=== PATIENT | male | born 1960 | race Two or more races ===

== ENCOUNTER 2021-03-19 19:03 | Emergency (ER) | payer MEDICAID, OTHER ==
[~2021-03-19] VITALS: Ht 180.3 cm; Wt 94.8 kg
--- NOTE | 2021-03-19 19:15 | NUR ---
PATIENT BIBRA 839 FOR BOARD AND CARE WITH NOTED HEMATURIA FOR THE PAST HOUR. PATIENT NOTED TO BE ON ENOXAPARIN. PATIENT A/O X 1, OPENS EYES, PATIENT RR EVEN AND UNLABORED, NO SOB NOTED. PATIENT CONNECTED TO MONITOR.
--- NOTE | 2021-03-19 19:25 | NUR ---
REMOVED OLD FC NOTED WITH RED BLOOD IN URINE. PLACED NEW FC fR 18G NO RESISTANTS, NO URINE OUTPUT. BLADDER SCAN NOTED WITH 50CC. CLAUDETTE RAMIREZ MADE AWARE.
[2021-03-19 19:34] LABS: BASOPHILS % (AUTO) 0.8 % (0.0-2.0); EOSINOPHILS % (AUTO) 12.9 % (0.0-6.0); HEMATOCRIT 42 % (39-51); HEMOGLOBIN 14.2 g/dL (13.5-17.5); LYMPHOCYTES # (AUTO) 1.3 K/uL (0.8-4.8); LYMPHOCYTES % (AUTO) 22.4 % (20.0-44.0); MEAN CORPUSCULAR HGB CONC 34 g/dl (31.0-36.0); MEAN CORPUSCULAR VOLUME 88 fL (80-96); MONOCYTES # (AUTO) 0.5 K/uL (0.1-1.30); NEUTROPHILS # (AUTO) 3.2 K/uL (1.8-8.9); NEUTROPHILS % (AUTO) 54.9 % (43.0-81.0); PLATELET COUNT (AUTO) 205 K/uL (150-450); RED BLOOD CELL COUNT(AUTO) 4.82 MIL/uL (4.5-6.0); WHITE BLOOD COUNT (AUTO) 5.9 K/uL (4.3-11.0)
[2021-03-19 19:47] LABS: CALCIUM, SERUM 8.8 mg/dL (8.5-10.1); CREATININE 0.9 mg/dL (0.6-1.3); POTASSIUM 4.3 mmol/L (3.5-5.1)
[2021-03-19] MEDS ORDERED: IV NS 0.9% 1,000 ML IV ONE (20:00)
--- NOTE | 2021-03-19 21:00 | NUR ---
URINE COLLECTED AND SENT TO LAB
[2021-03-19 21:11] LABS: BILIRUBIN,URINE LARGE (NEGATIVE); COLOR,URINE RED (YELLOW); LEUKOCYTE ESTERASE ,URINE Large (NEGATIVE); NITRITE, URINE Positive (NEGATIVE); PROTEIN,URINE >=300 mg/dl (NEGATIVE); UGLUCOSE Negative (NEGATIVE)
[2021-03-19 21:40] LABS: RBC,URINE TOO NUMEROUS TO COUN /HPF (0-2); WBC,URINE NONE SEEN /HPF (0-3)
[2021-03-19 21:41] LABS: BACTERIA,URINE None seen /HPF (None Seen); SQUAMOUS EPITHELIAL CELL,UR None Seen /HPF (None Seen)
[2021-03-19] MEDS ORDERED: CEFTRIAXONE 1GM BAG (ER ONLY) 50 ML IV ONE (21:57)
[2021-03-19] MEDS ORDERED: CEPH500C2 PO (21:59)
[2021-03-19] MEDS ORDERED: CEFTRIAXONE 1 G in IV D5W 50 ML IV ONE (22:00)
--- NOTE | 2021-03-19 22:17 | NUR ---
REPORT GIVEN TO [facility] ON PT UPDATE.
--- NOTE | 2021-03-19 22:19 | NUR ---
[facility] ETA [id number]
--- NOTE | 2021-03-19 23:45 | NUR ---
REPORT GIVEN TO EMS AT BEDSIDE. PATIENT BEING TRANSFERRED BACK TO FACILITY. PATIENT VSS, IN NO ACUTE DISTRESS.
[2021-03-19 23:58] VITALS: BP 122/73
[2021-03-20] MEDS ORDERED: TRAZ-182 PO (07:38)
[2021-03-20] MEDS ORDERED: ENOX40DI9 SQ (07:38)
[2021-03-20] MEDS ORDERED: QUET25TA PO (07:38)
[2021-03-20] MEDS ORDERED: ATOR40TA PO (07:38)
[2021-03-20] MEDS ORDERED: THIA100T70 PO (07:38)
[2021-03-20] MEDS ORDERED: VALP250S4 PO ×2 (07:38)
[2021-03-20] MEDS ORDERED: MELA3TAB41 PO (07:38)
[2021-03-20] MEDS ORDERED: BACL10TA PO (07:38)
[2021-03-20] MEDS ORDERED: ASPI-1169 PO (07:38)
[2021-03-20] MEDS ORDERED: LOSA25TA27 PO (07:38)
[2021-03-20] MEDS ORDERED: NICO-676 TD (07:38)
[2021-03-20] MEDS ORDERED: SENN-261 PO (07:38)
[2021-03-20] MEDS ORDERED: TAMS-12 PO (07:38)
[2021-03-20] MEDS ORDERED: ACET-868 PO (07:38)
[2021-03-20] MEDS ORDERED: HYDR-4077 PO (07:38)
[2021-03-20] MEDS ORDERED: MULT400T5 PO (07:38)
[2021-03-20] MEDS ORDERED: POLY17PO4 PO (07:38)
[2021-03-20] MEDS ORDERED: PROP10TA68 PO (07:38)
[2021-03-20] MEDS ORDERED: AMLO-212 PO (07:38)
== END 2021-03-19 23:59 ==
LOC: ER 19:06
DX: N39.0 Urinary tract infection, site not specified (principal); E86.0 Dehydration; T83.83XA Hemorrhage due to genitourinary prosthetic devices, implants and grafts, initial encounter; G93.40 Encephalopathy, unspecified; I10 Essential (primary) hypertension; E78.5 Hyperlipidemia, unspecified; Z79.899 Other long term (current) drug therapy; Z79.82 Long term (current) use of aspirin
CPT/HCPCS: 36415; 51702; 80048; 81001; 82962; 85025; 87077; 87086; 87186; 96361; 96365; 99284; J0696 ×2; J7060

== ENCOUNTER 2021-03-20 01:10 | Inpatient (IN) | payer MEDICAID ==
[~2021-03-20] VITALS: Ht 180.3 cm; Wt 92.1 kg
[~2021-03-20 01:10] MED LIST: CEPH500C2 PO
--- NOTE | 2021-03-20 01:45 | NUR ---
PATIENT BIBRA 39 FROM [facility]ARD AND CARE WITH C/O BLEEDING AROUND THE F/C. PATIENT IS A/O TO STIMULUS OPENS EYES AND TO PAIN. PATIENT RR EVEN AND UNLABORED, NO SOB NTOED. PATIENT CONNECTED TO CARDIAC AND POX. PATIENT F/C NOTED WITH 100CC CHRIS URINE. MODERATE BLOOD NOTED AROUND F/C.
--- NOTE | 2021-03-20 02:45 | NUR ---
PATIENT NOTED WITH BLEEDING FROM F/C. OLD F/C REMOVED. PLACED NEW Fr 22, 3 WAY, IRRIGATED, BLOOD IN URINE NOTED. PATIENT VSS, PATIENT CONNECTED TO MONITORS.
[2021-03-20] MEDS ORDERED: LIDOCAINE 2% JEL UROJET 10 ML MM ONE (03:12)
[2021-03-20 03:42] LABS: CALCIUM, SERUM 8.6 mg/dL (8.5-10.1); CREATININE 0.9 mg/dL (0.6-1.3); POTASSIUM 4.2 mmol/L (3.5-5.1)
[2021-03-20 03:46] LABS: BASOPHILS # (AUTO) 0.1 K/uL (0.0-0.2); BASOPHILS % (AUTO) 0.7 % (0.0-2.0); EOSINOPHILS % (AUTO) 6.1 % (0.0-6.0); HEMATOCRIT 39 % (39-51); LYMPHOCYTES # (AUTO) 1.3 K/uL (0.8-4.8); LYMPHOCYTES % (AUTO) 18.1 % (20.0-44.0); MEAN CORPUSCULAR HGB CONC 34 g/dl (31.0-36.0); MEAN CORPUSCULAR VOLUME 89 fL (80-96); MONOCYTES # (AUTO) 0.7 K/uL (0.1-1.30); MONOCYTES % (AUTO) 9.6 % (2.0-12.0); NEUTROPHILS # (AUTO) 4.9 K/uL (1.8-8.9); NEUTROPHILS % (AUTO) 65.5 % (43.0-81.0); PLATELET COUNT (AUTO) 203 K/uL (150-450); RED BLOOD CELL COUNT(AUTO) 4.35 MIL/uL (4.5-6.0); WHITE BLOOD COUNT (AUTO) 7.4 K/uL (4.3-11.0)
[2021-03-20] MEDS ORDERED: IV NS 0.9% 1,000 ML BAG IV ONE (04:00)
[2021-03-20] MEDS ORDERED: IOHEXOL-300 100 ML VIAL IV ONE (04:50)
[2021-03-20] MEDS ORDERED: IV NS 0.9% 250 ML IV ONE (04:50)
--- NOTE | 2021-03-20 04:55 | NUR ---
PATIENT TAKEN TO CT
--- NOTE | 2021-03-20 05:16 | NUR ---
PATIENT RETURNED FROM CT
--- NOTE | 2021-03-20 05:24 | NUR ---
room assignment: tele [id number]
--- NOTE | 2021-03-20 07:31 | NUR ---
Recieved the patient in bed, alert to self with O2 at 4L via NC. O distress noted, Patient respirations even and unlabored at this time. The patient is noted to have frey cath FR 22 with no output but with bloody stains all around periarea and looks like the origin of the blood is coming for the urethra. Also noted with blood clots around the urethra. Dr. Bales aware. Waiting for CT results. Will continue to monitor the patient closely and report to MD as needed.
[2021-03-20] MEDS ORDERED: LOSA25TA27 PO (07:38)
[2021-03-20] MEDS ORDERED: ASPI-1169 PO (07:38)
[2021-03-20] MEDS ORDERED: TRAZ-182 PO (07:38)
[2021-03-20] MEDS ORDERED: SENN-261 PO (07:38)
[2021-03-20] MEDS ORDERED: ATOR40TA PO (07:38)
[2021-03-20] MEDS ORDERED: BACL10TA PO (07:38)
[2021-03-20] MEDS ORDERED: MULT400T5 PO (07:38)
[2021-03-20] MEDS ORDERED: AMLO-212 PO (07:38)
[2021-03-20] MEDS ORDERED: TAMS-12 PO (07:38)
[2021-03-20] MEDS ORDERED: MELA3TAB41 PO (07:38)
[2021-03-20] MEDS ORDERED: VALP250S4 PO ×2 (07:38)
[2021-03-20] MEDS ORDERED: QUET25TA PO (07:38)
[2021-03-20] MEDS ORDERED: HYDR-4077 PO (07:38)
[2021-03-20] MEDS ORDERED: ENOX40DI9 SQ (07:38)
[2021-03-20] MEDS ORDERED: ACET-868 PO (07:38)
[2021-03-20] MEDS ORDERED: NICO-676 TD (07:38)
[2021-03-20] MEDS ORDERED: POLY17PO4 PO (07:38)
[2021-03-20] MEDS ORDERED: THIA100T70 PO (07:38)
[2021-03-20] MEDS ORDERED: PROP10TA68 PO (07:38)
--- NOTE | 2021-03-20 08:06 | NUR ---
[facility] CALLED HEAVY DUTY CUSTODIAN PAGED.
[2021-03-20] MEDS ORDERED: hydrALAZINE HCL 50 MG TABLET PO PRN (08:30)
[2021-03-20] MEDS ORDERED: ONDANSETRON HCL/PF 4 MG/2 ML VIAL IVP PRN (08:30)
[2021-03-20] MEDS ORDERED: ACETAMINOPHEN 325 MG TABLET PO PRN (08:30)
[2021-03-20] MEDS ORDERED: ALBUTEROL SULFATE 8 GM HFA.AER.AD IH PRN (08:30)
[2021-03-20] MEDS: PROPRANOLOL HCL 10 MG TABLET PO SCH ×3 (09:00→16:56)
[2021-03-20] MEDS: SENNOSIDES 8.6 MG TABLET PO SCH (09:00)
[2021-03-20] MEDS: BACLOFEN (10 MG) 10 MG TABLET PO SCH ×3 (09:00→16:56)
[2021-03-20] MEDS: NICOTINE PATCH (14MG) 14 MG PATCH.TD24 TD SCH (09:00)
[2021-03-20] MEDS ORDERED: ENOXAPARIN SODIUM 40 MG/0.4 ML DISP.SYRIN SQ SCH (09:00)
[2021-03-20] MEDS: MULTIVITAMINS,THERAGRAN 1 UDTAB TABLET PO SCH (09:00)
[2021-03-20] MEDS ORDERED: VALPROIC ACID 250 MG/5 ML UDC PO SCH ×2 (09:00→18:00)
[2021-03-20] MEDS: POLYETHYLENE GLYCOL 3350 17 GM POWD.PACK PO SCH (09:00)
[2021-03-20] MEDS: TAMSULOSIN 0.4 MG CAP.SR.24H PO SCH (09:00)
[2021-03-20] MEDS: AMLODIPINE BESYLATE 5 MG TABLET PO SCH (09:00)
[2021-03-20] MEDS: LOSARTAN POTASSIUM 25 MG TABLET PO SCH (09:00)
[2021-03-20] MEDS: QUETIAPINE FUMARATE 25 MG TABLET PO SCH ×3 (09:00→16:57)
[2021-03-20] MEDS: ASPIRIN 81 MG TAB.CHEW PO SCH (09:00)
--- NOTE | 2021-03-20 09:16 | NUR ---
RECEIVED AN ORDER FROM DR JACQUES TO INSERT FR [address] MEADOWS CATH INSERTION AND START CONTINUOUS GENTLE BLADDER IRRIGATION. THE ORDER IS READ BACK, VERIFIED. NOTED AND CARRIED OUT.
--- NOTE | 2021-03-20 09:17 | NUR ---
FR [address] MEADOWS CATH INSERTION AND START CONTINUOUS GENTLE BLADDER IRRIGATION. NOTED HEMATURIA WITH MODERATE BLOOD CLOTS. MONITORING THE OUTPUT AND NOTED THAT DRAINING WELL.
--- NOTE | 2021-03-20 09:42 | NUR ---
Continuous frey catheter tolerated well. Frey catheter draining well with hematuria but improved from the initial hematuria. O bladder distension noted.
--- NOTE | 2021-03-20 09:46 | NUR ---
Report given to Xin.
--- NOTE | 2021-03-20 10:05 | NUR ---
MS STEEL UNLOADER NOTE RECEIVED PATIENT FROM ER. PATIENT IS NOT VERBAL. PATIENT DOES NOT RESPOND TO TOUCH OR SPEECH. DOES NOT MAKE EYE CONTACT. LEFT PUPIL DOES NOT DILATE, RIGHT DILATES TO 4MM VERY SLOWLY. SKIN IS INTACT. COVID POSITIVE. VITALS STABLE - 132/91, HR 104, RR 18, OXYGEN 99%. IV ACCESS TO RIGHT AC # 20 - INTACT AND FLUSHES WELL, S/L. STABLE ON 4L OXYGEN VIA NASAL CANNULA. PATIENT HAS FR 3WAY MEADOWS CATHETER #16 WITH CONTINUOUS IRRIGATION. BLEEDING AND CLOTS NOTED IN ER. SAFETY MEASURES IN PLACE. CALL LIGHT WITHIN REACH. WILL CONTINUE TO MONITOR.
--- NOTE | 2021-03-20 10:11 | NUR ---
Patients continuous frey irrigation tolerated well and draining well with no hematuria noted during transfer. Patient resting comfortably with no SOB or respiratory distress noted. O bladder distension noted, abdomen is soft and nondistended. Patient transferred to assigned bed in stable condition.
[2021-03-20 11:45] LABS: C-REACTIVE PROTEIN 4.5 mg/dL (0.0-0.9)
[2021-03-20] MEDS: CEFTRIAXONE 1 G in IV D5W 50 ML IV SCH (11:57)
[2021-03-20] MEDS: VALPROATE 500 MG in IV D5W 100 ML IV SCH (14:13)
[2021-03-20 16:00] VITALS: BP 139/78
--- NOTE | 2021-03-20 19:30 | NUR ---
RN OPENING NOTES: RECEIVED NON VERBAL PT IN BED SLEEPING COMFORTABLY. PATIENT IN NO S/SX OF ACUTE DISTRESS AT THIS TIME. NO SOB NOTED. PATIENT'S BREATHING IS EVEN AND UNLABORED. PATIENT IS ON 4L OF OXYGEN VIA NC; TOLERATING WELL. PATIENT CURRENTLY ON NPO. NOTED IV SITE ON R AC#20; PATENT, INTACT AND FLUSHING WELL; NO S/S OF INFECTION OR INFILTRATION. WITH ONGOING CONTINUOUS IRRIGATION VIA 3-WAY MEADOWS CATHETER, MONITORED PER PROTOCAL. WITH R WRIST SOFT RESTRAINTS IN PLACED, MONITORED AND ASSESSED PER PROTOCOL. SAFETY MEASURES HAVE BEEN PROVIDED AND IMPLEMENTED. PATIENT BED ALARM IS ON. HEAD OF BED ELEVATED. BED IS LOCKED, IN LOWEST POSITION AND SIDE RAILS UP. CALL LIGHT WITHIN REACH OF THE PATIENT. APPLICABLE ISOLATION PRECAUTIONS IN PLACE. WILL CONTINUE TO MONITOR AND REASSESS FOR ANY CHANGES AND WILL CARRY OUT ANY ONGOING AND ACTIVE MD ORDER.
--- NOTE | 2021-03-20 19:41 | NUR ---
MS RN CLOSING NOTE PATIENT CURRENTLY LYING IN BED, RESTING. A/O X1. PATIENT IS NOT VERBAL. SOMEWHAT RESPONDS TO TOUCH. DOES NOT MAKE EYE CONTACT. ON 4L OXYGEN VIA NASAL CANNULA - NO SOB NOTED. NO DISTRESS/DISCOMFORT NOTED. RIGHT HAND IS RESTRAINED WITH SOFT WRIST RESTRAINT. LEFT SIDE HAS WEAKNESS. SKIN IS INTACT. COVID POSITIVE. IV ACCESS TO RIGHT AC #20 - INTACT AND FLUSHES WELL, S/L. FR 3-WAY MEADOWS CATHETER #16 WITH CONTINUOUS IRRIGATION - DRAINING CLEAR YELLOW URINE WITH NO CLOTS TO GRAVITY. SAFETY MEASURES IN PLACE. CALL LIGHT WITHIN REACH. WILL ENDORSE TO CLERK TO JUSTICE FOR ISA.
[2021-03-20 20:00] VITALS: BP 147/94
[2021-03-20] MEDS: VALPROATE 1,000 MG in IV D5W 100 ML IV SCH (21:33)
[2021-03-20] MEDS: ATORVASTATIN 40 MG TABLET PO SCH (21:33)
[2021-03-20] MEDS: TRAZODONE 50 MG TABLET PO SCH (21:33)
[2021-03-20] MEDS ORDERED: Medication Not On Formulary EA (Melatonin 6 MG) PO SCH (22:00)
--- NOTE | 2021-03-21 00:10 | NUR ---
RN NOTES BLADDER IRRIGATION DONE; URINE REMAINS TO BE CLEAR FOR THE LAST 2-3HOURS. NO NOTED HEMATURIA AT THIS TIME. CARRYING OUT DR. MASSEY'S ORDER TO STOP CBI WITH THE URINE REMAINS CLEAR 1-2HOURS, IF STARTED TO BE BLOOD MAY RESTART SLOW IRRIGATION TO KEEP URINE CLEAR. BALLOON DESIGN PRINTER MADE AWARE. WILL CONTINUE TO ASSESS AND MONITOR THROUGHOUT THE SHIFT.
--- NOTE | 2021-03-21 01:20 | NUR ---
RN NOTES ENDORSED AND REPORT GIVEN TO JIMBO GREER FOR ISA. RESIDENTIAL PROGRAM DIRECTOR MADE AWARE.
--- NOTE | 2021-03-21 01:25 | NUR ---
RN NOTE REPORT RECEIVED BY IRON FOR [facility]. WILL MONITOR PATIENT THROUGHOUT THE SHIFT. AUTOMATIC RIVETING MACHINE OPERATOR MADE AWARE.
[2021-03-21 04:00] VITALS: BP 154/92
[2021-03-21 06:32] LABS: BASOPHILS % (AUTO) 0.6 % (0.0-2.0); EOSINOPHILS % (AUTO) 7.3 % (0.0-6.0); HEMATOCRIT 31 % (39-51); HEMOGLOBIN 10.7 g/dL (13.5-17.5); LYMPHOCYTES # (AUTO) 1.2 K/uL (0.8-4.8); LYMPHOCYTES % (AUTO) 16.6 % (20.0-44.0); MEAN CORPUSCULAR HGB CONC 35 g/dl (31.0-36.0); MEAN CORPUSCULAR VOLUME 88 fL (80-96); MONOCYTES # (AUTO) 0.5 K/uL (0.1-1.30); MONOCYTES % (AUTO) 6.9 % (2.0-12.0); NEUTROPHILS # (AUTO) 4.9 K/uL (1.8-8.9); NEUTROPHILS % (AUTO) 68.6 % (43.0-81.0); PLATELET COUNT (AUTO) 208 K/uL (150-450); RED BLOOD CELL COUNT(AUTO) 3.55 MIL/uL (4.5-6.0); WHITE BLOOD COUNT (AUTO) 7.1 K/uL (4.3-11.0)
--- NOTE | 2021-03-21 06:40 | NUR ---
RN NOTE NO CHANGES IN PT CONDITION DURING SHIFT. PT IS ON 4L OF O2 VIA NC SHOWING NO S/S OF RESP DISTRESS. PT IS A&OX1. SKIN INTACT. PT IS CURRENTLY NPO. RIGHT AC GAUGE 20 NOTED, FLUSHED, PATENT, AND INTACT. NO SIGNS OF INFILTRATION. ALL DUE MEDS GIVEN ORDERED. PT KEPT CLEAN AND COMFORTABLE. BED LOCKED AND IN LOWEST POSITION. BED ALARM ON. WILL ENDORSE TO MORNING SHIFT RN FOR IAS.
[2021-03-21 06:54] LABS: ALBUMIN 2.5 g/dL (3.4-5.0); BILIRUBIN,TOTAL 0.4 mg/dL (0.2-1.0); CALCIUM, SERUM 8.4 mg/dL (8.5-10.1); CREATININE 0.9 mg/dL (0.6-1.3); MAGNESIUM 2.2 mg/dL (1.8-2.4); PHOSPHORUS 3.2 mg/dL (2.5-4.9); POTASSIUM 4.1 mmol/L (3.5-5.1); TOTAL PROTEIN, SERUM 6.4 g/dL (6.4-8.2)
[2021-03-21 07:08] LABS: THYROID STIMULATING HORMONE 2.442 uIU/mL (0.358-3.74)
--- NOTE | 2021-03-21 07:54 | NUR ---
REGIONAL TELECOMMUNICATIONS SPECIALIST OPENING NOTES RECEIVED PATIENT IN BED, ASLEEP, DOES NOT OPEN EYES WHEN TRYING TO COMMUNICATE WITH PATIENT, JUST SHIFTING IN BED. ON OXYGEN THERAPY AT 4 LPM VIA NASAL CANNULA; BREATHING EVEN AND UNLABORED AT THIS TIME. NO S/S OF PAIN. TELE MONITOR WITH A CURRENT READING OF SR 89. IV ACCESS ON RAC G #[address] DRAINING ORANGE URINE. SAFETY PRECAUTIONS IN PLACE; BED IN LOW POSITION AND LOCKED, RAILS UP X2, CALL LIGHT WITHIN REACH. WILL CONTINUE TO MONITOR PATIENT.
[2021-03-21] MEDS ORDERED: AZITHROMYCIN 250 MG TABLET PO SCH (08:30)
[2021-03-21] MEDS: CEFTRIAXONE 1 G in IV D5W 50 ML IV SCH (08:49)
[2021-03-21] MEDS: LOSARTAN POTASSIUM 25 MG TABLET PO SCH (09:00)
[2021-03-21] MEDS ORDERED: VALPROATE 500 MG in IV D5W 100 ML IV SCH (09:00)
[2021-03-21] MEDS: AMLODIPINE BESYLATE 5 MG TABLET PO SCH (09:00)
[2021-03-21] MEDS: POLYETHYLENE GLYCOL 3350 17 GM POWD.PACK PO SCH (09:00)
[2021-03-21] MEDS: NICOTINE PATCH (14MG) 14 MG PATCH.TD24 TD SCH (09:29)
[2021-03-21] MEDS: THIAMINE HCL 100 MG TABLET PO SCH (09:29)
[2021-03-21] MEDS: BACLOFEN (10 MG) 10 MG TABLET PO SCH ×3 (09:29→17:13)
[2021-03-21] MEDS: QUETIAPINE FUMARATE 25 MG TABLET PO SCH ×3 (09:29→17:13)
[2021-03-21] MEDS: SENNOSIDES 8.6 MG TABLET PO SCH (09:29)
[2021-03-21] MEDS: MULTIVITAMINS,THERAGRAN 1 UDTAB TABLET PO SCH (09:29)
[2021-03-21] MEDS: PROPRANOLOL HCL 10 MG TABLET PO SCH ×3 (09:30→17:13)
[2021-03-21] MEDS: ASPIRIN 81 MG TAB.CHEW PO SCH (09:30)
[2021-03-21] MEDS: TAMSULOSIN 0.4 MG CAP.SR.24H PO SCH (09:30)
[2021-03-21] MEDS: VALPROATE 500 MG in IV D5W 100 ML IV SCH (09:31)
[2021-03-21 12:06] VITALS: BP 119/70
[2021-03-21] MEDS: DEXAMETHASONE SOD PHOSPHATE 4 MG/ML VIAL IV SCH (17:14)
--- NOTE | 2021-03-21 18:56 | NUR ---
MS RN CLOSING NOTES PATIENT IN BED, ASLEEP, DOES NOT OPEN EYES WHEN TRYING TO COMMUNICATE WITH PATIENT, JUST SHIFTING IN BED. ON OXYGEN THERAPY AT 4 LPM VIA NASAL CANNULA; BREATHING EVEN AND UNLABORED AT THIS TIME. NO S/S OF PAIN. IV ACCESS ON RAC G #[address] DRAINING ORANGE URINE WITH A DAILY OUTPUT OF 350MLS. SAFETY PRECAUTIONS IN PLACE; BED IN LOW POSITION AND LOCKED, RAILS UP X2, CALL LIGHT WITHIN REACH. WILL ENDORSE TO AGRONOMY TEACHER NURSE.
[2021-03-21 20:42] VITALS: BP 117/71
[2021-03-21 20:47] VITALS: BP 106/70
[2021-03-21] MEDS: TRAZODONE 50 MG TABLET PO SCH (21:05)
[2021-03-21] MEDS: VALPROATE 1,000 MG in IV D5W 100 ML IV SCH (21:05)
[2021-03-21] MEDS: ATORVASTATIN 40 MG TABLET PO SCH (21:06)
--- NOTE | 2021-03-22 02:46 | NUR ---
RECEIVED PATIENT IN BED, ALERT/ORIENTED X1, 4LPM VIA NC, NOT IN APPARENT DISTRESS, RIGHT WRIST RESTRAINT, REMOVING IV LINE, COMBATIVE DURING PATIENT CARE, MEADOWS CATHETER DRAINING, CLEAR ORANGE URINE, NO BLEEDING, S/P BLADDER IRRIGATION, WILL CONTINUE TO MONITOR.
[2021-03-22 04:00] VITALS: BP 137/83
--- NOTE | 2021-03-22 06:19 | NUR ---
ALERT/ORIENTED X1, 4LPM VIA NC, BEDREST, NO SOB, AGITATED AT TIMES, MEADOWS CATHETER DRAINING, ORANGE URINE, RIGHT WRIST RESTRAINT, PULLING OUT MEADOWS CATHETER, MEATUS CLEANED WITH CHLORHEXIDINE, PER PLAN OF CARE, HOLD ANTICOAGULANTS DUE TO HEMATURIA, MONITOR URINE OUTPUT.
[2021-03-22 06:22] LABS: BASOPHILS % (AUTO) 0.3 % (0.0-2.0); EOSINOPHILS % (AUTO) 0.1 % (0.0-6.0); HEMATOCRIT 31 % (39-51); HEMOGLOBIN 10.6 g/dL (13.5-17.5); LYMPHOCYTES # (AUTO) 0.8 K/uL (0.8-4.8); LYMPHOCYTES % (AUTO) 10.5 % (20.0-44.0); MEAN CORPUSCULAR HGB CONC 34 g/dl (31.0-36.0); MEAN CORPUSCULAR VOLUME 89 fL (80-96); MONOCYTES # (AUTO) 0.2 K/uL (0.1-1.30); NEUTROPHILS # (AUTO) 6.4 K/uL (1.8-8.9); NEUTROPHILS % (AUTO) 86.1 % (43.0-81.0); PLATELET COUNT (AUTO) 215 K/uL (150-450); RED BLOOD CELL COUNT(AUTO) 3.49 MIL/uL (4.5-6.0); WHITE BLOOD COUNT (AUTO) 7.4 K/uL (4.3-11.0)
--- NOTE | 2021-03-22 07:15 | NUR ---
MS RN OPENING NOTE RECEIVED ON BED ALERT BUT NON-VERBAL. PT UNALBE TO ANSWER APPROPRIATELY ON SIMPLE QUESTIONS. NO S/SX OF ACUTE DISTRESS AT THIS TIME. NO SOB NOTED, WITH REGULAR, EVEN AND UNLABORED BREATHING WITH OXYGEN AT 4LPM VIA NASAL CANULA WITH OXYGEN SATURATION OF 94%. NOTED IV SITE ON R AC#20; PATENT, INTACT AND FLUSHING WELL; NO S/S OF INFECTION OR INFILTRATION. WITH MEADOWS CATHETER TO URINE BAG WITH CLEAR LIGHT YELLOW OUTPUT WITH NO SIGNS OF BLEEDING NOTED AT THIS TIME. WITH R WRIST SOFT RESTRAINTS IN PLACED, MONITORED AND ASSESSED PER PROTOCOL. SAFETY MEASURES HAVE BEEN PROVIDED AND IMPLEMENTED. PATIENT BED ALARM IS ON. HEAD OF BED ELEVATED. BED IS LOCKED AND IN LOWEST POSITION AND SIDE RAILS UP. CALL LIGHT WITHIN REACH OF THE PATIENT. APPLICABLE ISOLATION PRECAUTIONS IN PLACE. WILL CONTINUE TO MONITOR PATIENT.
[2021-03-22] MEDS: POLYETHYLENE GLYCOL 3350 17 GM POWD.PACK PO SCH (08:53)
[2021-03-22] MEDS: MULTIVITAMINS,THERAGRAN 1 UDTAB TABLET PO SCH (08:53)
[2021-03-22] MEDS: BACLOFEN (10 MG) 10 MG TABLET PO SCH ×3 (08:53→16:27)
[2021-03-22] MEDS: NICOTINE PATCH (14MG) 14 MG PATCH.TD24 TD SCH (08:53)
[2021-03-22] MEDS: TAMSULOSIN 0.4 MG CAP.SR.24H PO SCH (08:53)
[2021-03-22] MEDS: SENNOSIDES 8.6 MG TABLET PO SCH (08:53)
[2021-03-22] MEDS: THIAMINE HCL 100 MG TABLET PO SCH (08:54)
[2021-03-22] MEDS: QUETIAPINE FUMARATE 25 MG TABLET PO SCH ×3 (08:54→16:27)
[2021-03-22] MEDS: PROPRANOLOL HCL 10 MG TABLET PO SCH ×3 (08:54→16:27)
[2021-03-22] MEDS: LOSARTAN POTASSIUM 25 MG TABLET PO SCH (08:55)
[2021-03-22] MEDS: AMLODIPINE BESYLATE 5 MG TABLET PO SCH (08:56)
[2021-03-22] MEDS: DEXAMETHASONE SOD PHOSPHATE 4 MG/ML VIAL IV SCH ×2 (08:58→16:28)
[2021-03-22] MEDS: ASPIRIN 81 MG TAB.CHEW PO SCH (08:58)
[2021-03-22] MEDS: VALPROATE 500 MG in IV D5W 100 ML IV SCH (09:04)
--- NOTE | 2021-03-22 10:29 | NUR ---
MS RN NOTE PATIENT SEEN BY DR. SESAY WITH NO NEW ORDER AT THIS TIME. WILL CONTINUE TO MONITOR PATIENT.
[2021-03-22 10:49] LABS: CALCIUM, SERUM 8.7 mg/dL (8.5-10.1); CREATININE 0.8 mg/dL (0.6-1.3); MAGNESIUM 2.3 mg/dL (1.8-2.4); PHOSPHORUS 3.1 mg/dL (2.5-4.9); POTASSIUM 4.4 mmol/L (3.5-5.1)
[2021-03-22 12:00] VITALS: BP 112/68
--- NOTE | 2021-03-22 18:53 | NUR ---
MS RN CLOSING NOTE PATIENT ON BED ALERT BUT NON-VERBAL. PT UNABLE TO ANSWER APPROPRIATELY ON SIMPLE QUESTIONS. NO S/SX OF ACUTE DISTRESS AT THIS TIME. NO SOB NOTED, WITH REGULAR, EVEN AND UNLABORED BREATHING WITH OXYGEN AT 4LPM VIA NASAL CANULA WITH OXYGEN SATURATION OF 94%. NOTED IV SITE ON R AC#20; PATENT, INTACT AND FLUSHING WELL; NO S/S OF INFECTION OR INFILTRATION. WITH MEADOWS CATHETER TO URINE BAG WITH CLEAR LIGHT YELLOW OUTPUT WITH NO SIGNS OF BLEEDING NOTED AT THIS TIME. WITH R WRIST SOFT RESTRAINTS IN PLACED, MONITORED AND ASSESSED PER PROTOCOL. SAFETY MEASURES HAVE BEEN PROVIDED AND IMPLEMENTED. PATIENT BED ALARM IS ON. HEAD OF BED ELEVATED. BED IS LOCKED AND IN LOWEST POSITION AND SIDE RAILS UP. CALL LIGHT WITHIN REACH OF THE PATIENT. APPLICABLE ISOLATION PRECAUTIONS IN PLACE. WILL ENDORSE TO NEXT SHIFT FOR CONTINUITY OF CARE.
[2021-03-22 20:00] VITALS: BP 106/70
[2021-03-22] MEDS: VALPROATE 1,000 MG in IV D5W 100 ML IV SCH (21:16)
[2021-03-22] MEDS: ATORVASTATIN 40 MG TABLET PO SCH (21:17)
[2021-03-22] MEDS: TRAZODONE 50 MG TABLET PO SCH (21:17)
[2021-03-23 04:00] VITALS: BP 132/75
[2021-03-23 06:29] LABS: BASOPHILS % (AUTO) 0.1 % (0.0-2.0); HEMATOCRIT 30 % (39-51); LYMPHOCYTES # (AUTO) 0.8 K/uL (0.8-4.8); LYMPHOCYTES % (AUTO) 8.8 % (20.0-44.0); MEAN CORPUSCULAR HGB CONC 34 g/dl (31.0-36.0); MEAN CORPUSCULAR VOLUME 88 fL (80-96); MONOCYTES # (AUTO) 0.3 K/uL (0.1-1.30); MONOCYTES % (AUTO) 3.6 % (2.0-12.0); NEUTROPHILS # (AUTO) 8.3 K/uL (1.8-8.9); NEUTROPHILS % (AUTO) 87.5 % (43.0-81.0); PLATELET COUNT (AUTO) 264 K/uL (150-450); RED BLOOD CELL COUNT(AUTO) 3.35 MIL/uL (4.5-6.0); WHITE BLOOD COUNT (AUTO) 9.5 K/uL (4.3-11.0)
[2021-03-23 06:43] LABS: CALCIUM, SERUM 8.8 mg/dL (8.5-10.1); CREATININE 0.8 mg/dL (0.6-1.3); MAGNESIUM 2.4 mg/dL (1.8-2.4); PHOSPHORUS 3.3 mg/dL (2.5-4.9); POTASSIUM 3.9 mmol/L (3.5-5.1)
--- NOTE | 2021-03-23 07:30 | NUR ---
RN NOTE PT FOUND IN SUPINE POSITION, DISPLAYING NO S/S OF ACUTE DISTRESS, PT IS BREATHING EVEN AND UNLABORED ON 4L O2 NC AND FLACC = 0. PT R WRIST IN SOFT RESTRAINTS, PULSE PALPATED AND CAP REFILL < 3 SECONDS. L WRIST IS NOT RESTRAINED. R AC 20G, IV PATIENT AND INTACT. MEADOWS CATH SECURE, BELOW PATIENT AND DRAINING BY GRAVITY. SAFETY MEASURES IN PLACE, BED LOCKED AND IN LOWEST POSITION, SIDE RAILS UPX2, CALL LIGHT WITHIN REACH, BED ALARM ARMED. Addendum: 03/23/21 at 1901 by PATO TAVERA RN CORRECTION, BILATERAL WRISTS RESTRAINED.
[2021-03-23] MEDS: POLYETHYLENE GLYCOL 3350 17 GM POWD.PACK PO SCH (08:34)
[2021-03-23] MEDS: AMLODIPINE BESYLATE 5 MG TABLET PO SCH (08:34)
[2021-03-23] MEDS: PROPRANOLOL HCL 10 MG TABLET PO SCH ×3 (08:35→17:42)
[2021-03-23] MEDS: QUETIAPINE FUMARATE 25 MG TABLET PO SCH ×3 (08:35→17:42)
[2021-03-23] MEDS: MULTIVITAMINS,THERAGRAN 1 UDTAB TABLET PO SCH (08:35)
[2021-03-23] MEDS: BACLOFEN (10 MG) 10 MG TABLET PO SCH ×3 (08:35→17:40)
[2021-03-23] MEDS: LOSARTAN POTASSIUM 25 MG TABLET PO SCH (08:36)
[2021-03-23] MEDS: THIAMINE HCL 100 MG TABLET PO SCH (08:36)
[2021-03-23] MEDS: SENNOSIDES 8.6 MG TABLET PO SCH (08:36)
[2021-03-23] MEDS: NICOTINE PATCH (14MG) 14 MG PATCH.TD24 TD SCH (08:36)
[2021-03-23] MEDS: TAMSULOSIN 0.4 MG CAP.SR.24H PO SCH (08:36)
[2021-03-23] MEDS: ASPIRIN 81 MG TAB.CHEW PO SCH (08:37)
[2021-03-23] MEDS: DEXAMETHASONE SOD PHOSPHATE 4 MG/ML VIAL IV SCH ×2 (08:37→17:42)
[2021-03-23] MEDS: VALPROATE 500 MG in IV D5W 100 ML IV SCH (09:08)
[2021-03-23 12:00] VITALS: BP 101/68
[2021-03-23 15:57] LABS: ABG BASE EXCESS 1.7 mmol/L; ABG OXYGEN SATURATION 97.2 % (92.0-98.5); ABG PCO2 34.3 mmHg (35.0-45.0); ABG PO2 93.3 mmHg (75.0-100.0); AaDO2 101.9 mmHg; COHb 0.3 % (0.5-1.5); MetHb 0.2 % (0.0-1.5); O2Hb 96.7 % (94.0-97.0); SITE, ABG Right Radial; VENT MODE, BG nasal cannula
--- NOTE | 2021-03-23 19:00 | NUR ---
RN NOTE PT FOUND IN SUPINE POSITION, DISPLAYING NO S/S OF ACUTE DISTRESS, PT IS BREATHING EVEN AND UNLABORED ON 2L O2 NC AND FLACC = 0. PT WRISTS IN SOFT RESTRAINTS, PULSE PALPATED AND CAP REFILL < 3 SECONDS. R AC 20G, IV PATIENT AND INTACT. MEADOWS CATH SECURE, BELOW PATIENT AND DRAINING BY GRAVITY. SAFETY MEASURES IN PLACE, BED LOCKED AND IN LOWEST POSITION, SIDE RAILS UPX2, CALL LIGHT WITHIN REACH, BED ALARM ARMED. REPORT GIVEN TO BUFFING AND SUEDING MACHINE OPERATOR RN.
[2021-03-23 20:00] VITALS: BP 107/63
[2021-03-23] MEDS: VALPROATE 1,000 MG in IV D5W 100 ML IV SCH (21:02)
[2021-03-23] MEDS: ATORVASTATIN 40 MG TABLET PO SCH (21:07)
[2021-03-23] MEDS: TRAZODONE 50 MG TABLET PO SCH (21:07)
[2021-03-24 04:00] VITALS: BP 139/88
--- NOTE | 2021-03-24 05:14 | NUR ---
MS-1/EXTERMINATOR MEADOWS BAG CHANGED. PT TOLERATED WELL.
--- NOTE | 2021-03-24 07:05 | NUR ---
RN OPENING NOTES RECEIVED PT IN BED ALERT BUT NON-VERBAL. ON 2L O2 VIA NC. NO SOB OR ANY S/SX OF ACUTE RESPIRATORY DISTRESS AT THIS TIME. OXYGEN SATURATION OF 96%. IV SITE ON R AC#20 INTACT, PATENT AND FLUSHED. MEADOWS CATHETER IN PLACE DRAINING TO CLEAR YELLOW OUTPUT. WITH BILATERAL SOFT RESTRAINTS IN PLACE. MONITORED AND ASSESSED PER PROTOCOL. SAFETY MEASURES IMPLEMENTED. CALL LIGHT WITHIN REACH. BED LOCKED AND IN LOWEST POSITION WITH SIDE RAILS UP X3. WILL CONTINUE TO MONITOR.
[2021-03-24 07:17] LABS: BASOPHILS % (AUTO) 0.1 % (0.0-2.0); HEMATOCRIT 31 % (39-51); HEMOGLOBIN 10.6 g/dL (13.5-17.5); LYMPHOCYTES # (AUTO) 1.2 K/uL (0.8-4.8); LYMPHOCYTES % (AUTO) 11.6 % (20.0-44.0); MEAN CORPUSCULAR HGB CONC 34 g/dl (31.0-36.0); MEAN CORPUSCULAR VOLUME 89 fL (80-96); MONOCYTES # (AUTO) 0.4 K/uL (0.1-1.30); MONOCYTES % (AUTO) 3.7 % (2.0-12.0); NEUTROPHILS # (AUTO) 8.8 K/uL (1.8-8.9); NEUTROPHILS % (AUTO) 84.6 % (43.0-81.0); PLATELET COUNT (AUTO) 294 K/uL (150-450); RED BLOOD CELL COUNT(AUTO) 3.53 MIL/uL (4.5-6.0); WHITE BLOOD COUNT (AUTO) 10.5 K/uL (4.3-11.0)
[2021-03-24 07:31] LABS: CALCIUM, SERUM 8.8 mg/dL (8.5-10.1); CREATININE 0.9 mg/dL (0.6-1.3); MAGNESIUM 2.4 mg/dL (1.8-2.4); PHOSPHORUS 3.6 mg/dL (2.5-4.9)
[2021-03-24] MEDS: DEXAMETHASONE SOD PHOSPHATE 4 MG/ML VIAL IV SCH ×2 (08:22→17:24)
[2021-03-24] MEDS: TAMSULOSIN 0.4 MG CAP.SR.24H PO SCH (08:23)
[2021-03-24] MEDS: THIAMINE HCL 100 MG TABLET PO SCH (08:23)
[2021-03-24] MEDS: ASPIRIN 81 MG TAB.CHEW PO SCH (08:23)
[2021-03-24] MEDS: MULTIVITAMINS,THERAGRAN 1 UDTAB TABLET PO SCH (08:23)
[2021-03-24] MEDS: BACLOFEN (10 MG) 10 MG TABLET PO SCH ×3 (08:23→17:24)
[2021-03-24] MEDS: QUETIAPINE FUMARATE 25 MG TABLET PO SCH ×3 (08:23→17:24)
[2021-03-24] MEDS: SENNOSIDES 8.6 MG TABLET PO SCH (08:23)
[2021-03-24] MEDS: POLYETHYLENE GLYCOL 3350 17 GM POWD.PACK PO SCH (08:24)
[2021-03-24] MEDS: PROPRANOLOL HCL 10 MG TABLET PO SCH ×3 (08:24→17:00)
[2021-03-24] MEDS: LOSARTAN POTASSIUM 25 MG TABLET PO SCH (08:24)
[2021-03-24] MEDS: NICOTINE PATCH (14MG) 14 MG PATCH.TD24 TD SCH (08:24)
[2021-03-24] MEDS: AMLODIPINE BESYLATE 5 MG TABLET PO SCH (08:25)
[2021-03-24] MEDS: VALPROATE 500 MG in IV D5W 100 ML IV SCH (09:12)
[2021-03-24 12:00] VITALS: BP 103/58
--- NOTE | 2021-03-24 18:50 | NUR ---
RN CLOSING NOTES NO SIGNIFICANT CHANGES THROUGHOUT THE SHIFT. NO SOB OR ANY DISTRESS NOTED. NO PAIN REPORTED AT THIS TIME. KEPT CLEAN AND COMFORTABLE. ALL DUE MEDS GIVEN. NEEDS ATTENDED. SAFETY MEASURES IN PLACE. WILL ENDORSE TO NIGHT RN FOR ISA.
--- NOTE | 2021-03-24 19:40 | NUR ---
RN NOTE RECEIVED PATIENT IN BED RESTING ALERT CONFUSED NON VERBAL,ON MED SURG MONITORING ON 2L OXYGEN VIA NASAL CANNULA,O2:97% IV SITE IS ON RIGHT AC INTACT PATENT,MEADOWS CATH IN PLACE URINE DRAINING YELLOW AND CLEAR BY GRAVITY,INCONTINENT TO BOWEL/SAFETY MEASURE IMPLEMENT,BED IN LOW POSITION AND LOCKED,BED ALARM IS ON CONTINUE TO MONITOR.
[2021-03-24 20:00] VITALS: BP 97/64
[2021-03-24] MEDS: VALPROATE 1,000 MG in IV D5W 100 ML IV SCH (20:42)
[2021-03-24] MEDS: TRAZODONE 50 MG TABLET PO SCH (22:07)
[2021-03-24] MEDS: ATORVASTATIN 40 MG TABLET PO SCH (22:08)
[2021-03-25 04:00] VITALS: BP 104/72
--- NOTE | 2021-03-25 07:16 | NUR ---
RN NOTE, PATIENT REMAINS ON ALERT CONFUSED NON VERBAL ON 2L OXYGEN VIA NASAL CANNULA,NO SOB NOT ACUTE DISTRESS NOTED,ALL DUE MEDS GIVEN MD ORDERED KEPT CLEAN AND DRY ALL THE TIME KEPT COMFORTABLE ALL NEEDS MET ENDORSE NEXT COMING SHIFT FOR CONTINUATION OF CARE.
[2021-03-25 07:40] LABS: CALCIUM, SERUM 9.2 mg/dL (8.5-10.1); CREATININE 0.8 mg/dL (0.6-1.3); MAGNESIUM 2.6 mg/dL (1.8-2.4); PHOSPHORUS 3.7 mg/dL (2.5-4.9); POTASSIUM 4.9 mmol/L (3.5-5.1)
[2021-03-25 09:31] LABS: BASOPHILS % (AUTO) 0.4 % (0.0-2.0); HEMATOCRIT 34 % (39-51); HEMOGLOBIN 11.5 g/dL (13.5-17.5); LYMPHOCYTES # (AUTO) 1.7 K/uL (0.8-4.8); LYMPHOCYTES % (AUTO) 13.3 % (20.0-44.0); MEAN CORPUSCULAR HGB CONC 34 g/dl (31.0-36.0); MEAN CORPUSCULAR VOLUME 89 fL (80-96); MONOCYTES # (AUTO) 0.7 K/uL (0.1-1.30); MONOCYTES % (AUTO) 5.3 % (2.0-12.0); NEUTROPHILS # (AUTO) 10.1 K/uL (1.8-8.9); PLATELET COUNT (AUTO) 347 K/uL (150-450); RED BLOOD CELL COUNT(AUTO) 3.86 MIL/uL (4.5-6.0); WHITE BLOOD COUNT (AUTO) 12.5 K/uL (4.3-11.0)
[2021-03-25] MEDS: VALPROATE 500 MG in IV D5W 100 ML IV SCH (09:44)
[2021-03-25] MEDS: BACLOFEN (10 MG) 10 MG TABLET PO SCH ×3 (09:51→17:16)
[2021-03-25] MEDS: MULTIVITAMINS,THERAGRAN 1 UDTAB TABLET PO SCH (09:52)
[2021-03-25] MEDS: SENNOSIDES 8.6 MG TABLET PO SCH (09:52)
[2021-03-25] MEDS: THIAMINE HCL 100 MG TABLET PO SCH (09:52)
[2021-03-25] MEDS: TAMSULOSIN 0.4 MG CAP.SR.24H PO SCH (09:53)
[2021-03-25] MEDS: PROPRANOLOL HCL 10 MG TABLET PO SCH ×3 (09:53→17:16)
[2021-03-25] MEDS: AMLODIPINE BESYLATE 5 MG TABLET PO SCH (09:54)
[2021-03-25] MEDS: POLYETHYLENE GLYCOL 3350 17 GM POWD.PACK PO SCH (09:54)
[2021-03-25] MEDS: DEXAMETHASONE SOD PHOSPHATE 4 MG/ML VIAL IV SCH ×2 (09:54→17:16)
[2021-03-25] MEDS: LOSARTAN POTASSIUM 25 MG TABLET PO SCH (09:54)
[2021-03-25] MEDS: QUETIAPINE FUMARATE 25 MG TABLET PO SCH ×3 (09:54→17:15)
[2021-03-25] MEDS: NICOTINE PATCH (14MG) 14 MG PATCH.TD24 TD SCH (09:55)
[2021-03-25] MEDS: ASPIRIN 81 MG TAB.CHEW PO SCH (09:57)
[2021-03-25 12:00] VITALS: BP 120/72
--- NOTE | 2021-03-25 19:20 | NUR ---
RN NOTE RECEIVED PATIENT IN BED RESTING ALERT CONFUSED NON VERBAL,ON MED SURG MONITORING ON 2L OXYGEN VIA NASAL CANNULA,O2:99% IV SITE IS ON RIGHT AC INTACT PATENT,MEADOWS CATH IN PLACE URINE DRAINING ORANGE BY GRAVITY,INCONTINENT TO BOWEL/SAFETY MEASURE IMPLEMENT,BED IN LOW POSITION AND LOCKED,BED ALARM IS ON CONTINUE TO MONITOR.
[2021-03-25 20:00] VITALS: BP 113/68
[2021-03-25] MEDS: VALPROATE 1,000 MG in IV D5W 100 ML IV SCH (21:14)
[2021-03-25] MEDS: ATORVASTATIN 40 MG TABLET PO SCH (21:16)
[2021-03-25] MEDS: TRAZODONE 50 MG TABLET PO SCH (21:17)
[2021-03-26 04:00] VITALS: BP 102/65
[2021-03-26 06:04] LABS: BASOPHILS % (AUTO) 0.3 % (0.0-2.0); EOSINOPHILS % (AUTO) 3.5 % (0.0-6.0); HEMATOCRIT 33 % (39-51); LYMPHOCYTES # (AUTO) 1.8 K/uL (0.8-4.8); LYMPHOCYTES % (AUTO) 19.2 % (20.0-44.0); MEAN CORPUSCULAR HGB CONC 34 g/dl (31.0-36.0); MEAN CORPUSCULAR VOLUME 89 fL (80-96); MONOCYTES # (AUTO) 0.8 K/uL (0.1-1.30); NEUTROPHILS # (AUTO) 6.5 K/uL (1.8-8.9); PLATELET COUNT (AUTO) 316 K/uL (150-450); RED BLOOD CELL COUNT(AUTO) 3.64 MIL/uL (4.5-6.0); WHITE BLOOD COUNT (AUTO) 9.4 K/uL (4.3-11.0)
--- NOTE | 2021-03-26 06:59 | NUR ---
RN NOTE PATIENT REMAINS ON ALERT NONVERBAL ON 2L OXYGEN VIA NASAL CANNULA, NO SOB NO ACUTE DISTRESS NOTED,ALL DUE MEDS GIVEN MD ORDERED KEEP CLEAN AND DRY ALL THE TIME ALL NEEDS MET ENDORSE NEXT COMING SHIFT FOR CONTINUATION OF CARE
[2021-03-26 07:12] LABS: CALCIUM, SERUM 8.5 mg/dL (8.5-10.1); CREATININE 0.9 mg/dL (0.6-1.3); MAGNESIUM 2.3 mg/dL (1.8-2.4); PHOSPHORUS 3.3 mg/dL (2.5-4.9); POTASSIUM 4.1 mmol/L (3.5-5.1)
--- NOTE | 2021-03-26 07:28 | NUR ---
RN NOTE PATIENT IS IN BED WITH HOB AT SEMI PAULINO'S POSITION. PATIENT IS CONFUSED. PATIENT IS ON ROOM AIR WITH NO SIGNS OF LABORED BREATHING. RWRIST RESTRAINT IS APPLIED. RAC #20 IS PATENT AND INTACT. BED IS LOCKED IN THE LOWEST POSITION, 3 GUARD RAILS RAISED, CALL WELLS WITHIN REACH, AND ALL HOSPITAL SAFETY PRECAUTIONS ARE BEING FOLLOWED. WILL CONTINUE TO MONITOR THROUGHOUT SHIFT.
--- NOTE | 2021-03-26 09:20 | NUR ---
RN NOTE ENDORSED TO JIMBO WHYTE FOR ISA.
[2021-03-26] MEDS: POLYETHYLENE GLYCOL 3350 17 GM POWD.PACK PO SCH (09:31)
[2021-03-26] MEDS: NICOTINE PATCH (14MG) 14 MG PATCH.TD24 TD SCH (09:32)
[2021-03-26] MEDS: MULTIVITAMINS,THERAGRAN 1 UDTAB TABLET PO SCH (09:33)
[2021-03-26] MEDS: ASPIRIN 81 MG TAB.CHEW PO SCH (09:33)
[2021-03-26] MEDS: SENNOSIDES 8.6 MG TABLET PO SCH (09:33)
[2021-03-26] MEDS: QUETIAPINE FUMARATE 25 MG TABLET PO SCH ×3 (09:37→17:05)
[2021-03-26] MEDS: TAMSULOSIN 0.4 MG CAP.SR.24H PO SCH (09:37)
[2021-03-26] MEDS: THIAMINE HCL 100 MG TABLET PO SCH (09:37)
[2021-03-26] MEDS: LOSARTAN POTASSIUM 25 MG TABLET PO SCH (09:38)
[2021-03-26] MEDS: PROPRANOLOL HCL 10 MG TABLET PO SCH ×3 (09:38→17:01)
[2021-03-26] MEDS: AMLODIPINE BESYLATE 5 MG TABLET PO SCH (09:38)
[2021-03-26] MEDS: BACLOFEN (10 MG) 10 MG TABLET PO SCH ×3 (09:39→17:01)
[2021-03-26] MEDS: DEXAMETHASONE SOD PHOSPHATE 4 MG/ML VIAL IV SCH (09:39)
[2021-03-26] MEDS: VALPROATE 500 MG in IV D5W 100 ML IV SCH (09:39)
[2021-03-26 12:00] VITALS: BP 88/53
--- NOTE | 2021-03-26 12:19 | NUR ---
MD ROUNDING PROVIDER DID ROUNDING, RN INFORMED MD OF PT'S BP, 89/58 (67). MD GAVE ORDERS, 500 CC 0.9% NS BOLUS WIDE OPEN. RN WILL ENTER ORDER DIRECTED AND CARRY OUT.
[2021-03-26] MEDS ORDERED: IV NS 0.9% 500 ML BAG IV ONE (12:30)
--- NOTE | 2021-03-26 19:00 | NUR ---
RN NOTE PT FOUND IN SEMI FOWLERS POSITION, DISPLAYING NO S/S OF DISTRESS, FLACC = 0 AND BREATHING IS EVEN AND UNLABORED. R WRIST REMAINS FREE OF INJURY, CAP REFILL < 3 SECONDS AND PULSES PALPATED. PT ATTEMPTS TO GRAB STAFF WHEN STAFF COMES NEAR. R AC 20G IV PATIENT AND INTACT. VSS, REPORT GIVEN TO SOIL CONSERVATIONIST RN. CHARTS CHECKED AND ISA MAINTAINED.
[2021-03-26 20:00] VITALS: BP 109/78
--- NOTE | 2021-03-26 20:00 | NUR ---
MS RN NOTE PT IN BED AWAKE. A/O X 1 CONFUSED. NO SOB, NO DISTRESS OR DISCOMFORT NOTED. DENIES PAIN. SL RAC #20 G INTACT AND PATENT. F/C INTACT AND PATENT DRAINING YELLOWISH COLOR URINE. REPOSITON HIM Q2H, PT WITH RT WRIST SOFT RESTRAINT. SKIN AOURND RESTRAINT WNL. SIDE RAILS UP X 3 AND CALL LIGHT WITHIN REACH. VSS. CONTINUE TO MONITOR HIM.
[2021-03-26] MEDS: ATORVASTATIN 40 MG TABLET PO SCH (21:51)
[2021-03-26] MEDS: VALPROATE 1,000 MG in IV D5W 100 ML IV SCH (21:51)
[2021-03-26] MEDS: TRAZODONE 50 MG TABLET PO SCH (21:52)
[2021-03-27 04:00] VITALS: BP 97/55
[2021-03-27 06:12] LABS: BASOPHILS % (AUTO) 0.1 % (0.0-2.0); EOSINOPHILS % (AUTO) 2.9 % (0.0-6.0); HEMATOCRIT 33 % (39-51); HEMOGLOBIN 10.8 g/dL (13.5-17.5); LYMPHOCYTES # (AUTO) 1.8 K/uL (0.8-4.8); LYMPHOCYTES % (AUTO) 18.5 % (20.0-44.0); MEAN CORPUSCULAR HGB CONC 33 g/dl (31.0-36.0); MEAN CORPUSCULAR VOLUME 90 fL (80-96); MONOCYTES # (AUTO) 0.6 K/uL (0.1-1.30); MONOCYTES % (AUTO) 6.2 % (2.0-12.0); NEUTROPHILS # (AUTO) 6.9 K/uL (1.8-8.9); NEUTROPHILS % (AUTO) 72.3 % (43.0-81.0); PLATELET COUNT (AUTO) 286 K/uL (150-450); RED BLOOD CELL COUNT(AUTO) 3.61 MIL/uL (4.5-6.0); WHITE BLOOD COUNT (AUTO) 9.6 K/uL (4.3-11.0)
[2021-03-27 06:16] LABS: CALCIUM, SERUM 8.3 mg/dL (8.5-10.1); CREATININE 0.9 mg/dL (0.6-1.3); PHOSPHORUS 3.8 mg/dL (2.5-4.9); POTASSIUM 4.2 mmol/L (3.5-5.1)
--- NOTE | 2021-03-27 06:42 | NUR ---
MS RN NOTE PT IN BED ASLEEP, NO DISTRESS OR DISCOMFORT NOTED. NO S/S OF PAIN NOTED. REMAIN RT WRIST WITH SOFT RESTRAINT. ALL NEEDS ATTENDED. SIDE RAILS UP X 2 AND CALL LIGHT WITHIN REACH. WILL ENDORSE TO DAY SHIFT NURSE FOR CONTINUE TO CARE.
--- NOTE | 2021-03-27 07:51 | NUR ---
RN OPENING NOTE Pt is Awake, alert to stimuli, no respiratory distress, no SOB, denies any distress, no facial grimacing. RAC IV 20G patent Right wrist soft restraint in place. Safety precautions implemented, bed locked in lowest position, call light within reach. .
[2021-03-27] MEDS: DEXAMETHASONE SOD PHOSPHATE 4 MG/ML VIAL IV SCH (08:41)
[2021-03-27] MEDS: POLYETHYLENE GLYCOL 3350 17 GM POWD.PACK PO SCH (08:45)
[2021-03-27] MEDS: NICOTINE PATCH (14MG) 14 MG PATCH.TD24 TD SCH (08:45)
[2021-03-27] MEDS: ASPIRIN 81 MG TAB.CHEW PO SCH (08:45)
[2021-03-27] MEDS: QUETIAPINE FUMARATE 25 MG TABLET PO SCH ×2 (08:46→13:00)
[2021-03-27] MEDS: LOSARTAN POTASSIUM 25 MG TABLET PO SCH (08:47)
[2021-03-27] MEDS: TAMSULOSIN 0.4 MG CAP.SR.24H PO SCH (08:47)
[2021-03-27] MEDS: MULTIVITAMINS,THERAGRAN 1 UDTAB TABLET PO SCH (08:47)
[2021-03-27] MEDS: BACLOFEN (10 MG) 10 MG TABLET PO SCH ×3 (08:48→16:30)
[2021-03-27] MEDS: THIAMINE HCL 100 MG TABLET PO SCH (08:48)
[2021-03-27] MEDS: SENNOSIDES 8.6 MG TABLET PO SCH (08:49)
[2021-03-27] MEDS: AMLODIPINE BESYLATE 5 MG TABLET PO SCH (08:49)
[2021-03-27] MEDS: PROPRANOLOL HCL 10 MG TABLET PO SCH ×3 (08:50→16:46)
[2021-03-27] MEDS: VALPROATE 500 MG in IV D5W 100 ML IV SCH (08:58)
[2021-03-27 12:00] VITALS: BP 132/78
[2021-03-27] MEDS: QUETIAPINE FUMARATE 100 MG TABLET PO SCH (16:30)
--- NOTE | 2021-03-27 18:17 | NUR ---
pharmacy notified to change depacon to po per timstacy.
--- NOTE | 2021-03-27 18:18 | NUR ---
ekg result relayed to dr. garcia and miko gray no new order.
--- NOTE | 2021-03-27 18:44 | NUR ---
RN CLOSING NOTE Pt is alert to stimuli only, non-verbal, with periods of restlessness. 2 liters via NC 02 96%. Right wrist soft restraint remains in place since noted with episodes of pulling F/C and hitting his hand against the rail. RAC IV site remains patent. AM/PM Care rendered, repositioned and maintain clean/dry. Safety precautions implemented, bed locked in lowest position, call light within reach.
--- NOTE | 2021-03-27 19:30 | NUR ---
RN NOTE RECEIVED PATIENT IN BED, OPENS EYES, NON VERBAL, IN NO S/SX OF ACUTE DISTRESS AT THIS TIME, BREATHING EVEN AND UNLABORED, SATURATION AT 95% ON 2L VIA NC, HR IS 87. NOTED IV LINE AT RAC 20G, PATENT AND FLUSHING WELL, NO S/S OF INFECTION OR INFILTRATION NOTED. NOTED SOFT RESTRAINTS ON THE RIGHT WRIST. SAFETY MEASURES IMPLEMENTED. BED IS LOCKED, IN LOWEST POSITION AND SIDE RAILS UP. CALL LIGHT WITHIN REACH OF PATIENT. WILL CONTINUE TO MONITOR AND REASSESS FOR ANY CHANGES.
[2021-03-27 20:00] VITALS: BP 101/57
[2021-03-27] MEDS ORDERED: VALPROIC ACID 250 MG/5 ML UDC PO SCH (21:00)
[2021-03-27] MEDS ORDERED: VALPROATE 1,500 MG in IV D5W 100 ML IV SCH (21:00)
[2021-03-27] MEDS: ATORVASTATIN 40 MG TABLET PO SCH (21:42)
[2021-03-28 04:00] VITALS: BP 100/67
[2021-03-28 06:54] LABS: BASOPHILS % (AUTO) 0.1 % (0.0-2.0); EOSINOPHILS % (AUTO) 2.2 % (0.0-6.0); HEMATOCRIT 30 % (39-51); HEMOGLOBIN 10.3 g/dL (13.5-17.5); LYMPHOCYTES # (AUTO) 1.7 K/uL (0.8-4.8); LYMPHOCYTES % (AUTO) 18.3 % (20.0-44.0); MEAN CORPUSCULAR HGB CONC 34 g/dl (31.0-36.0); MEAN CORPUSCULAR VOLUME 89 fL (80-96); MONOCYTES # (AUTO) 0.6 K/uL (0.1-1.30); MONOCYTES % (AUTO) 6.6 % (2.0-12.0); NEUTROPHILS # (AUTO) 6.8 K/uL (1.8-8.9); NEUTROPHILS % (AUTO) 72.8 % (43.0-81.0); PLATELET COUNT (AUTO) 291 K/uL (150-450); RED BLOOD CELL COUNT(AUTO) 3.39 MIL/uL (4.5-6.0); WHITE BLOOD COUNT (AUTO) 9.3 K/uL (4.3-11.0)
[2021-03-28 07:04] LABS: CALCIUM, SERUM 8.3 mg/dL (8.5-10.1); CREATININE 0.9 mg/dL (0.6-1.3); PHOSPHORUS 3.5 mg/dL (2.5-4.9); POTASSIUM 3.8 mmol/L (3.5-5.1)
--- NOTE | 2021-03-28 07:36 | NUR ---
RN CLOSING NOTE Pt is Alert to stimuli only, no respiratory distress, no SOB, on 2 liters 02 via NC. F/C patent with hematuria present. Right wrist soft restraint present, still noted with episodes of restlessness and hitting side rail with hand-pillow placed. Safety precautions implemented, bed locked in lowest position, call light within reach.
[2021-03-28] MEDS: DEXAMETHASONE SOD PHOSPHATE 4 MG/ML VIAL IV SCH (08:35)
[2021-03-28] MEDS: BACLOFEN (10 MG) 10 MG TABLET PO SCH ×2 (08:38→12:07)
[2021-03-28] MEDS: AMLODIPINE BESYLATE 5 MG TABLET PO SCH (08:39)
[2021-03-28] MEDS: POLYETHYLENE GLYCOL 3350 17 GM POWD.PACK PO SCH (08:39)
[2021-03-28] MEDS: QUETIAPINE FUMARATE 100 MG TABLET PO SCH ×2 (08:40→12:07)
[2021-03-28] MEDS: SENNOSIDES 8.6 MG TABLET PO SCH (08:40)
[2021-03-28] MEDS: THIAMINE HCL 100 MG TABLET PO SCH (08:40)
[2021-03-28] MEDS: TAMSULOSIN 0.4 MG CAP.SR.24H PO SCH (08:41)
[2021-03-28] MEDS: LOSARTAN POTASSIUM 25 MG TABLET PO SCH (08:42)
[2021-03-28] MEDS: PROPRANOLOL HCL 10 MG TABLET PO SCH ×2 (08:42→12:08)
[2021-03-28] MEDS: ASPIRIN 81 MG TAB.CHEW PO SCH (08:43)
[2021-03-28] MEDS: NICOTINE PATCH (14MG) 14 MG PATCH.TD24 TD SCH (08:44)
[2021-03-28] MEDS: MULTIVITAMINS,THERAGRAN 1 UDTAB TABLET PO SCH (08:44)
[2021-03-28] MEDS ORDERED: VALPROIC ACID 250 MG/5 ML UDC PO SCH (09:00)
[2021-03-28] MEDS ORDERED: QUET100T PO (10:17)
[2021-03-28] MEDS ORDERED: VALP250S22 PO (10:17)
[2021-03-28 12:00] VITALS: BP 94/65
[2021-03-28 12:08] VITALS: BP 94/65
--- NOTE | 2021-03-28 16:00 | NUR ---
TIN PLATER NOTE Pt D/C back to SN[facility], ambulance picked patient via gurney with two EMT's, pertinent info given. Report given to staff at SNF. F/C patent, IV heplock removed. Patient left in stable condition.
== END 2021-03-28 16:10 | DRG 466 ==
LOC: ER 01:12 → MEDSG1 05:28
PROVIDERS: ADMIT Registered Nurse; ATTEND Nurse Practitioner Acute Care
PROC: 3C1ZX8Z Irrigation of Indwelling Device using Irrigating Substance, External Approach (ICD-10-PCS; principal; 2021-03-20)
DX: T83.83XA Hemorrhage due to genitourinary prosthetic devices, implants and grafts, initial encounter (principal); G92 Toxic encephalopathy; F05 Delirium due to known physiological condition; N39.0 Urinary tract infection, site not specified; I10 Essential (primary) hypertension; Z86.73 Personal history of transient ischemic attack (TIA), and cerebral infarction without residual deficits; E66.9 Obesity, unspecified; G40.909 Epilepsy, unspecified, not intractable, without status epilepticus; E86.0 Dehydration; Y84.8 Other medical procedures as the cause of abnormal reaction of the patient, or of later complication, without mention of misadventure at the time of the procedure; E78.5 Hyperlipidemia, unspecified; K40.90 Unilateral inguinal hernia, without obstruction or gangrene, not specified as recurrent; R33.9 Retention of urine, unspecified; N40.1 Benign prostatic hyperplasia with lower urinary tract symptoms; R53.1 Weakness; K57.90 Diverticulosis of intestine, part unspecified, without perforation or abscess without bleeding; R31.0 Gross hematuria; Y73.8 Miscellaneous gastroenterology and urology devices associated with adverse incidents, not elsewhere classified; D72.829 Elevated white blood cell count, unspecified; Y92.89 Other specified places as the place of occurrence of the external cause; Z20.822 Contact with and (suspected) exposure to COVID-19
CPT/HCPCS: 36415; 36600; 71045-TC; 80048-TC; 80053-TC; 80061-TC; 80164-TC; 82550-TC; 82728-TC; 82803-TC; 83615-TC; 83735-TC; 84100-TC; 84443-TC; 85025-TC; 85378-TC; 85610-TC; 85730-TC; 86140-TC; 87040-TC; 87081-TC; 92526; 92611-TC; 93970-TC; A4217; C9803; G0378; J0696; J1100; J3490; J7030; J7040; J7050; J7060; Q9967; U0003

== ENCOUNTER 2021-03-31 18:25 | Emergency (ER) | payer MEDICAID ==
[~2021-03-31] VITALS: Ht 170.2 cm; Wt 90.7 kg
[~2021-03-31 18:25] MED LIST changes: +ACET-868 PO; +AMLO-212 PO; +ASPI-1169 PO; +ATOR40TA PO; +BACL10TA PO; -CEPH500C2 PO; +HYDR-4077 PO; +LOSA25TA27 PO; +MELA3TAB41 PO; +MULT400T5 PO; +NICO-676 TD; +POLY17PO4 PO; +PROP10TA68 PO; +QUET100T PO; +SENN-261 PO; +TAMS-12 PO; +THIA100T70 PO; +TRAZ-182 PO; +VALP250S22 PO; +VALP250S4 PO
--- NOTE | 2021-03-31 18:25 | NUR ---
PT BIBRA [address] [facility] C/O BLOODY URINE "PT PULLED HIS CATHETER THIS MORNING" PT IS AAOX1, NOT IN RESPIRATORY DISTRESS, V/S STABLE, KEPT RESTED AND COMFORTABLE. WILL CONTINUE TO MONITOR.
[2021-03-31] MEDS ORDERED: MULT-447 PO (18:34)
[2021-03-31] MEDS ORDERED: ASCO-352 PO (18:34)
[2021-03-31] MEDS ORDERED: QUET50TA PO (18:34)
[2021-03-31] MEDS ORDERED: LIDOCAINE 2% JEL UROJET 10 ML MM ONE (19:31)
--- NOTE | 2021-03-31 22:36 | NUR ---
[facility] ETA 1 HR
--- NOTE | 2021-03-31 22:38 | NUR ---
REPORT GIVEN TO STAFF AT [facility], SPOKE TO LANDON
--- NOTE | 2021-03-31 23:46 | NUR ---
[facility] in facility, report given. pt transported via private ambulance. get. kermits
--- NOTE | 2021-03-31 23:47 | NUR ---
[facility] AT BED SIDE TO MARINE SCIENTIST THE PT
[2021-04-01 00:54] VITALS: BP 139/80
== END 2021-04-01 00:54 ==
LOC: ER 18:29
DX: Z46.6 Encounter for fitting and adjustment of urinary device (principal); I10 Essential (primary) hypertension; Z79.899 Other long term (current) drug therapy; Z79.82 Long term (current) use of aspirin
CPT/HCPCS: J3490